=== PATIENT | male | born 1975 | race Caucasian/White ===

== ENCOUNTER 2018-10-01 15:56 | Emergency (ER) | payer OTHER ==
[2018-10-01] MEDS ORDERED: LIDOCAINE 1% (MDV) 10 ML INJ INJ (18:09)
[2018-10-01] MEDS: LIDOCAINE 1% (MDV) 20 ML INJ INJ (18:18)
== END 2018-10-01 19:22 | disposition home or self-care (01) ==
LOC: FTE 15:56
DX: L05.01 Pilonidal cyst with abscess (principal); E11.9 Type 2 diabetes mellitus without complications
CPT/HCPCS: 10080; 99283-25

== ENCOUNTER 2018-10-11 17:06 | Emergency (ER) | payer OTHER | END 2018-10-11 18:35 | disposition home or self-care (01) | LOC: FTE 17:06 | DX: K61.1 Rectal abscess (principal) | CPT/HCPCS: 99281; Z7502 ==